=== PATIENT | male | born 1935 | race Caucasian/White ===

== ENCOUNTER 2016-11-04 05:27 | Day surgery (SDC) | payer OTHER ==
[~2016-11-04] VITALS: Ht 167.6 cm; Wt 88.5 kg
[~2016-11-04 05:27] MED LIST: ACCUPRIL40 MG PO; AMLODIPINE BESYL5 MG PO; ATORVASTATIN CA20 MG PO; HUMULIN N100 UNITS/ SC; HYDROCHLOROTHIA25 MG PO; XARELTO20 MG PO
[2016-11-04 06:04] VITALS: BP 158/76
[2016-11-04 06:10] LABS: POINT-OF-CARE METER ID UU14174212
[2016-11-04 09:04] LABS: POINT-OF-CARE METER ID UU13113675
[2016-11-04 09:45] VITALS: BP 166/77
[2016-11-04 10:23] VITALS: BP 156/70
== END 2016-11-04 10:24 | disposition home or self-care (01) ==
LOC: SDC 05:27
PROVIDERS: Internal Medicine
DX: H27.01 Aphakia, right eye (principal); H43.01 Vitreous prolapse, right eye; H43.811 Vitreous degeneration, right eye; I48.91 Unspecified atrial fibrillation; N18.3 Chronic kidney disease, stage 3 (moderate); E11.22 Type 2 diabetes mellitus with diabetic chronic kidney disease; I12.9 Hypertensive chronic kidney disease with stage 1 through stage 4 chronic kidney disease, or unspecified chronic kidney disease; I71.2 Thoracic aortic aneurysm, without rupture; G47.30 Sleep apnea, unspecified; Z86.73 Personal history of transient ischemic attack (TIA), and cerebral infarction without residual deficits; Z79.4 Long term (current) use of insulin
CPT/HCPCS: 82948; J0690; J2405; J3300; V2632